=== PATIENT | female | born 2000 | race Caucasian/White ===

== ENCOUNTER 2024-10-26 20:08 | Emergency (ER) | payer MEDICAID ==
[~2024-10-26] VITALS: Ht 162.6 cm; Wt 56.7 kg
[2024-10-26 20:08] VITALS: BP 96/59; TEMP 98.2; O2SAT 99
[2024-10-26] MEDS ORDERED: SULF1TAB48 PO (21:59)
[2024-10-26] MEDS ORDERED: SULFAMETH/TRIMETH 800/160 MG 1 UDTAB TABLET ONE (22:01)
[2024-10-26] MEDS: SULFAMETH/TRIMETH 800/160 MG 1 UDTAB TABLET PO ONE (22:03)
[2024-10-26 22:11] LABS: APPEARANCE,URINE CLOUDY (CLEAR); BILIRUBIN,URINE NEGATIVE (NEGATIVE); BLOOD, URINE 1+ Ery/uL (NEGATIVE); COLOR,URINE YELLOW (YELLOW); KETONES,URINE NEGATIVE (NEGATIVE); LEUKOCYTE ESTERASE ,URINE 3+ (NEGATIVE); NITRITE, URINE NEGATIVE (NEGATIVE); PROTEIN,URINE NEGATIVE (NEGATIVE); UGLUCOSE NEGATIVE (NEGATIVE); UROBILINOGEN,URINE 0.2 EU/dL (0.2)
[2024-10-27 00:48] LABS: ADD URINE CULTURE YES; BACTERIA,URINE 2+ /HPF (None Seen)
== END 2024-10-26 22:31 | disposition home or self-care (01) ==
LOC: ER 20:11
DX: N39.0 Urinary tract infection, site not specified (principal)
CPT/HCPCS: 81001